=== PATIENT | female | born 1980 | race Caucasian/White ===

== ENCOUNTER 2017-05-20 07:18 | Day surgery (SDC) | payer MEDICAID ==
[2017-01-25 08:17] VITALS: BMI 31.4
[2017-05-20] MEDS ORDERED: Lactated Ringer's 500 ML IV ONE (07:46)
[2017-05-20] MEDS ORDERED: Propofol 10 mg/ml Inj (20 ML) ONE (08:10)
[2017-05-20] MEDS ORDERED: Midazolam 2 MG/2 ML VIAL ONE (08:10)
[2017-05-20 09:40] VITALS: O2SAT 100
[2017-05-20 10:01] VITALS: BP 97/50; PULSE 79; RESP 15; TEMP 96.9
== END 2017-05-20 13:45 | disposition home or self-care (01) ==
LOC: H.ENDO 07:18
PROVIDERS: ATTEND Internal Medicine Gastroenterology
DX: K52.9 Noninfective gastroenteritis and colitis, unspecified (principal); R19.7 Diarrhea, unspecified; K21.9 Gastro-esophageal reflux disease without esophagitis; K29.70 Gastritis, unspecified, without bleeding